=== PATIENT | female | born 1995 | race American Indian/Alaskan Native ===

== ENCOUNTER 2017-03-13 13:07 | Inpatient (IN) | payer MEDICAID ==
[~2017-03-13] VITALS: Ht 165.1 cm; Wt 85.6 kg
[~2017-03-13 13:07] MED LIST: IBUP-1222 PO; OXYC-302 PO; PREN1TAB60 PO
[2017-03-13] MEDS ORDERED: ONDANSETRON 2MG/ML, 2ML ONE ×2 (14:00→19:44)
[2017-03-13] MEDS ORDERED: ONDANSETRON 2MG/ML, 2ML IVPush ONE (14:00)
[2017-03-13] MEDS ORDERED: SODIUM CHLORIDE 0.9% 1,000ML IVBOLUS ONE ×2 (14:00→18:30)
[2017-03-13] MEDS ORDERED: SODIUM CHLORIDE FLUSH 10ML SYR IVF ONE (14:00)
[2017-03-13] MEDS ORDERED: MORPHINE SULFATE 4 MG/ML, 1ML ONE ×2 (14:00→15:32)
[2017-03-13] MEDS: MORPHINE SULFATE 4 MG/ML, 1ML IVPush PRN ×2 (14:01→15:38)
[2017-03-13 14:11] LABS: HEMOGLOBIN 13.9 g/dL (11.7-16.4); WHITE BLOOD COUNT 22.6 x10^3/uL (3.4-10)
[2017-03-13 14:20] LABS: ASPARTATE AMINO TRANSFERASE 12 U/L (15-37); BLOOD UREA NITROGEN 13 mg/dL (7-18)
[2017-03-13 14:40] LABS: DIFF TOTAL CELLS COUNTED 100 CELL DIFF
[2017-03-13 14:41] LABS: VERIFY COUNTS? YES
[2017-03-13 14:42] LABS: LARGE PLATELETS 1+
[2017-03-13] MEDS ORDERED: OMNIPAQUE 350 MG/ML, 100ML BOTTLE ONE (15:34)
[2017-03-13] MEDS ORDERED: CEFTRIAXONE PMX 1GM/50ML 50 ML ONE (17:49)
[2017-03-13] MEDS ORDERED: CEFTRIAXONE PMX 1GM/50ML 50 ML IV ONE (19:00)
[2017-03-13] MEDS ORDERED: ACETAMINOPHEN 325 MG TABLET PO PRN (19:30)
[2017-03-13] MEDS ORDERED: morphine SULFATE 10 MG/ML, 1ML ONE (19:44)
[2017-03-13] MEDS ORDERED: LEVOFLOXACIN/PMX 750MG/150ML 150 ML ONE (19:44)
[2017-03-13] MEDS: LEVOFLOXACIN/PMX 750MG/150ML 150 ML IV SCH (20:02)
[2017-03-13] MEDS: morphine SULFATE 10 MG/ML, 1ML IVPush PRN ×2 (20:02→22:54)
[2017-03-13] MEDS: ONDANSETRON 2MG/ML, 2ML IVPush PRN (20:02)
[2017-03-13 20:37] VITALS: BP 119/82
[2017-03-13] MEDS: POTASSIUM CHLORIDE 20 MEQ in LACTATED RINGERS 1,000 ML IV SCH (22:53)
[2017-03-13] MEDS: ENOXAPARIN 40 MG/0.4 ML SQ SCH (22:53)
[2017-03-14] MEDS: ONDANSETRON 2MG/ML, 2ML IVPush PRN ×4 (01:49→21:40)
[2017-03-14 02:20] VITALS: BP 103/69
[2017-03-14] MEDS: morphine SULFATE 10 MG/ML, 1ML IVPush PRN ×6 (02:47→22:11)
[2017-03-14 05:40] LABS: HEMATOCRIT 35.2 % (34.6-47.8); HEMOGLOBIN 12.3 g/dL (11.7-16.4); WHITE BLOOD COUNT 19.7 x10^3/uL (3.4-10)
[2017-03-14 05:46] LABS: ASPARTATE AMINO TRANSFERASE 10 U/L (15-37); BLOOD UREA NITROGEN 10 mg/dL (7-18)
[2017-03-14 07:23] VITALS: BP 110/71
[2017-03-14] MEDS: POTASSIUM CHLORIDE 20 MEQ in LACTATED RINGERS 1,000 ML IV SCH ×2 (09:14→21:31)
[2017-03-14 12:57] VITALS: BP 108/73
[2017-03-14] MEDS: POTASSIUM CHLORIDE 20 MEQ TAB.ER.PRT PO SCH (16:15)
[2017-03-14 18:48] VITALS: BP 120/80
[2017-03-14] MEDS: ENOXAPARIN 40 MG/0.4 ML SQ SCH (19:40)
[2017-03-14] MEDS: LEVOFLOXACIN/PMX 750MG/150ML 150 ML IV SCH (19:40)
[2017-03-15] MEDS: OXYcodone IR 5MG TABLET PO PRN ×6 (00:47→23:50)
[2017-03-15 04:26] VITALS: BP 113/77
[2017-03-15 05:06] LABS: HEMATOCRIT 33.4 % (34.6-47.8); HEMOGLOBIN 11.6 g/dL (11.7-16.4); WHITE BLOOD COUNT 12.7 x10^3/uL (3.4-10)
[2017-03-15 05:07] LABS: BLOOD UREA NITROGEN 8 mg/dL (7-18)
[2017-03-15 07:26] VITALS: BP 120/79
[2017-03-15] MEDS ORDERED: MORPHINE SULFATE 4 MG/ML, 1ML ONE (08:06)
[2017-03-15] MEDS: ONDANSETRON 2MG/ML, 2ML IVPush PRN ×2 (08:16→18:09)
[2017-03-15] MEDS: morphine SULFATE 10 MG/ML, 1ML IVPush PRN (08:18)
[2017-03-15] MEDS: POTASSIUM CHLORIDE 20 MEQ TAB.ER.PRT PO SCH (08:20)
[2017-03-15] MEDS: POTASSIUM CHLORIDE 20 MEQ in LACTATED RINGERS 1,000 ML IV SCH ×2 (11:13→21:20)
[2017-03-15 14:02] VITALS: BP 110/73
[2017-03-15 19:31] VITALS: BP 121/86
[2017-03-15] MEDS: ENOXAPARIN 40 MG/0.4 ML SQ SCH (19:40)
[2017-03-15] MEDS: LEVOFLOXACIN/PMX 750MG/150ML 150 ML IV SCH (19:40)
[2017-03-16] MEDS: ONDANSETRON 2MG/ML, 2ML IVPush PRN ×2 (00:33→08:55)
[2017-03-16 02:10] VITALS: BP 109/73
[2017-03-16] MEDS: OXYcodone IR 5MG TABLET PO PRN ×4 (04:08→16:59)
[2017-03-16 05:05] LABS: HEMATOCRIT 33.6 % (34.6-47.8); HEMOGLOBIN 11.6 g/dL (11.7-16.4); WHITE BLOOD COUNT 9.3 x10^3/uL (3.4-10)
[2017-03-16 05:10] LABS: BLOOD UREA NITROGEN 7 mg/dL (7-18)
[2017-03-16 07:07] VITALS: BP 119/83
[2017-03-16] MEDS: POTASSIUM CHLORIDE 20 MEQ in LACTATED RINGERS 1,000 ML IV SCH ×2 (08:33→16:47)
[2017-03-16 13:05] VITALS: BP 125/89
[2017-03-16] MEDS ORDERED: LEVO750T6 PO (15:06)
[2017-03-16] MEDS ORDERED: ONDA4TAB10 PO (15:06)
[2017-03-16] MEDS ORDERED: OXYC5TAB3 PO (15:06)
== END 2017-03-16 17:17 | disposition home or self-care (01) | DRG 871 ==
LOC: ED 17:17 → EDIP 18:33 → 3NE 20:32
PROVIDERS: ADMIT Hospitalist; ATTEND Family Medicine
PROC: 0T9B70Z Drainage of Bladder with Drainage Device, Via Natural or Artificial Opening (ICD-10-PCS; principal; 2017-03-13)
DX: A41.9 Sepsis, unspecified organism (principal); E43 Unspecified severe protein-calorie malnutrition; N10 Acute pyelonephritis; B96.20 Unspecified Escherichia coli [E. coli] as the cause of diseases classified elsewhere; E86.0 Dehydration; E87.6 Hypokalemia; Z16.24 Resistance to multiple antibiotics; Z68.31 Body mass index [BMI] 31.0-31.9, adult; Z88.1 Allergy status to other antibiotic agents; Z88.0 Allergy status to penicillin; Z88.8 Allergy status to other drugs, medicaments and biological substances
CPT/HCPCS: 36415; 74177; 76700; 76857; 80048; 80053; 81001; 82977; 83605; 83690; 83735; 84100; 84134; 84703; 85025; 87077; 87086; 87186; 96361; 96365; 96375; 96376; J0696; J1650; J1956; J2405; J3480; Q9967; J2270; J7030; J7120

== ENCOUNTER 2017-03-19 08:14 | Emergency (ER) | payer MEDICAID ==
[~2017-03-19] VITALS: Ht 165.1 cm; Wt 70.0 kg
[~2017-03-19 08:14] MED LIST changes: +LEVO750T6 PO; +ONDA4TAB10 PO; +OXYC5TAB3 PO
[2017-03-19] MEDS ORDERED: SODIUM CHLORIDE 0.9% 1,000ML IVBOLUS ONE (08:30)
[2017-03-19] MEDS ORDERED: SODIUM CHLORIDE FLUSH 10ML SYR IVF ONE (08:30)
[2017-03-19 08:44] LABS: HEMATOCRIT 36.7 % (34.6-47.8); HEMOGLOBIN 12.6 g/dL (11.7-16.4); WHITE BLOOD COUNT 12.8 x10^3/uL (3.4-10)
[2017-03-19 08:56] LABS: ASPARTATE AMINO TRANSFERASE 24 U/L (15-37); BLOOD UREA NITROGEN 10 mg/dL (7-18)
[2017-03-19 09:04] LABS: DIFF TOTAL CELLS COUNTED 100 CELL DIFF
[2017-03-19 09:06] LABS: VERIFY COUNTS? YES
[2017-03-19] MEDS ORDERED: MORPHINE SULFATE 4 MG/ML, 1ML ONE (09:28)
[2017-03-19 09:30] LABS: PATH.CAST-FLAG NOT PRESENT; SPERM-FLAG NOT PRESENT; SRC-FLAG NOT PRESENT; XTAL-FLAG NOT PRESENT; YLC-FLAG NOT PRESENT
[2017-03-19] MEDS ORDERED: MORPHINE SULFATE 4 MG/ML, 1ML IVPush PRN (09:30)
[2017-03-19 10:55] VITALS: BP 115/81
== END 2017-03-19 11:08 | disposition home or self-care (01) ==
LOC: MERGE 08:14 → ED 09:47
DX: R10.31 Right lower quadrant pain (principal); R19.7 Diarrhea, unspecified
CPT/HCPCS: 36415; 80053; 81001; 83690; 84703; 85025; 87077; 87086; 96361; 96374; 99285; J7030; 87186

== ENCOUNTER 2018-12-18 00:41 | Emergency (ER) | payer MEDICAID ==
[~2018-12-18] VITALS: Ht 162.6 cm; Wt 77.5 kg
[2018-12-18 00:44] VITALS: BP 142/96
[2018-12-18] MEDS ORDERED: DIPH,PERTUSS(ACELL),TET VAC/PF 0.5 ML IM-VACC ONE (01:30)
--- NOTE | 2018-12-18 01:40 | NUR ---
ATTEMPT TO CALL PT FROM LOBBY TO ROOM. PT NIL X 1
--- NOTE | 2018-12-18 02:22 | NUR ---
no answer called for room, lobby checked
--- NOTE | 2018-12-18 02:36 | NUR ---
attempted to call pt from lobby to room. pt nil x 3
== END 2018-12-18 02:38 | disposition left against medical advice (07) ==
LOC: ED 02:30
DX: M79.621 Pain in right upper arm (principal)
CPT/HCPCS: 99281

== ENCOUNTER 2018-12-27 23:55 | Emergency (ER) | payer MEDICAID ==
[~2018-12-27] VITALS: Ht 165.1 cm; Wt 85.4 kg
[2018-12-28] VITALS: BP 139/74
[2018-12-28] MEDS ORDERED: LIDOCAINE-MPF 1%, 5ML INFIL ONE (00:30)
[2018-12-28] MEDS ORDERED: DIPH,PERTUSS(ACELL),TET VAC/PF 0.5 ML IM-VACC ONE (00:30)
[2018-12-28 00:37] LABS: BASOPHILS # (AUTO) 0.04 x10^3/uL (0-0.1); BASOPHILS % (AUTO) 0 % (0-1); EOSINOPHILS # (AUTO) 0.42 x10^3/uL (0-0.4); EOSINOPHILS % (AUTO) 4 % (1-7); LYMPHOCYTES # (AUTO) 1.73 x10^3/uL (1-3.4); LYMPHOCYTES % (AUTO) 15 % (22-44); MD NO; MEAN CORPUSCULAR HEMOGLOBIN 32.7 pg (27.0-34.8); MEAN CORPUSCULAR HGB CONC 33.7 g/dL (32.4-35.8); MEAN PLATELET VOLUME 8.7 fL (7.4-10.4); MONOCYTES # (AUTO) 0.62 x10^3/uL (0.2-0.8); MONOCYTES % (AUTO) 5 % (2-9); NEUTROPHILS # (AUTO) 8.86 x10^3/uL (1.8-6.8); NEUTROPHILS % (AUTO) 76 % (42-75); PLATELET COUNT 284 x10^3/uL (130-400); RED CELL DISTRIBUTION WIDTH 14.1 % (9.6-15.2)
[2018-12-28 00:49] LABS: ALBUMIN 3.4 g/dL (3.4-5.0); ANION GAP 10 mmol/L (5-15); CALCIUM 8.7 mg/dL (8.5-10.1); CHLORIDE 109 mmol/L (98-107)
--- NOTE | 2018-12-28 01:30 | NUR ---
pt called to room, nil
--- NOTE | 2018-12-28 01:59 | NUR ---
pt called back to room, us and lab do not have pt. collette
== END 2018-12-28 02:02 | disposition left against medical advice (07) ==
LOC: ED 12-28 01:56
DX: R10.2 Pelvic and perineal pain (principal)
CPT/HCPCS: 36415; 76801; 80048; 82040; 84702; 85025; 99284

== ENCOUNTER 2019-07-08 21:21 | Inpatient (IN) | payer MEDICAID ==
[~2019-07-08] VITALS: Ht 165.1 cm; Wt 104.0 kg
[2019-07-08 21:30] VITALS: BP 110/62
[2019-07-08 21:43] LABS: MICROSCOPIC INDICATED
[2019-07-08] MEDS ORDERED: LACTATED RINGERS 1,000 ML IVBOLUS ONE (22:00)
[2019-07-08] MEDS ORDERED: TERBUTALINE 1 MG/ML, 1ML ONE (22:17)
[2019-07-08 22:20] LABS: BARBITURATE SCREEN, URINE Negative (Negative); BENZODIAZEPINE SCREEN, URINE Negative (Negative); CANNABINOID SCREEN, URINE Positive (Negative); COCAINE SCREEN, URINE Negative (Negative); METHADONE SCREEN, URINE Negative (Negative); OPIATE SCREEN, URINE Negative (Negative)
[2019-07-08 22:21] LABS: AMPHETAMINE SCREEN, URINE Negative (Negative)
[2019-07-08] MEDS ORDERED: TERBUTALINE 1 MG/ML, 1ML SQ ONE (22:30)
[2019-07-08] MEDS ORDERED: MAGNESIUM SULFATE PMX 4GM/100M 100 ML IVPB ONE (23:30)
[2019-07-08] MEDS ORDERED: MAGNESIUM SULFATE PMX 4GM/100M 100 ML ONE (23:34)
[2019-07-08] MEDS ORDERED: BETAMETHASONE 6 MG/ML, 5ML IM ONE (23:34)
[2019-07-08] MEDS ORDERED: MAGNESIUM SULFATE PMX 2GM/50ML 50 ML ONE (23:34)
[2019-07-08] MEDS: BETAMETHASONE 6 MG/ML, 5ML IM SCH (23:54)
[2019-07-09] MEDS ORDERED: MAGNESIUM SULFATE PMX 2GM/50ML 50 ML IV ONE
[2019-07-09] MEDS: MAGNESIUM SULF. PMX 20GM/500ML 500 ML IV SCH ×3 (00:27→19:12)
[2019-07-09] MEDS ORDERED: CEFAZOLIN PMX 2GM/50ML 50 ML IVPB SCH (03:00)
[2019-07-09 07:33] LABS: BASOPHILS # (AUTO) 0.01 x10^3/uL (0-0.1); BASOPHILS % (AUTO) 0 % (0-1); EOSINOPHILS % (AUTO) 0 % (1-7); LYMPHOCYTES # (AUTO) 0.84 x10^3/uL (1-3.4); LYMPHOCYTES % (AUTO) 5 % (22-44); MD NO; MEAN CORPUSCULAR HEMOGLOBIN 32.2 pg (27.0-34.8); MEAN CORPUSCULAR HGB CONC 33.3 g/dL (32.4-35.8); MEAN CORPUSCULAR VOLUME 96.8 fL (80-100); MEAN PLATELET VOLUME 8.7 fL (7.4-10.4); MONOCYTES # (AUTO) 0.09 x10^3/uL (0.2-0.8); MONOCYTES % (AUTO) 1 % (2-9); NEUTROPHILS # (AUTO) 15.06 x10^3/uL (1.8-6.8); NEUTROPHILS % (AUTO) 94 % (42-75); PLATELET COUNT 272 x10^3/uL (130-400); RED BLOOD COUNT 3.99 x10^6/uL (3.82-5.3); RED CELL DISTRIBUTION WIDTH 13.1 % (9.6-15.2)
[2019-07-09] MEDS: CEFAZOLIN PMX 1GM/50ML 50 ML IV SCH ×2 (11:01→17:58)
[2019-07-09] MEDS: LACTATED RINGERS 1,000 ML IV SCH (14:49)
[2019-07-09] MEDS ORDERED: ACETAMINOPHEN 325 MG TABLET ONE (22:15)
[2019-07-09] MEDS ORDERED: ONDANSETRON 2MG/ML, 2ML ONE (22:15)
[2019-07-09] MEDS ORDERED: ONDANSETRON 2MG/ML, 2ML IVPush PRN (22:30)
[2019-07-09] MEDS ORDERED: ACETAMINOPHEN 325 MG TABLET PO PRN (22:30)
[2019-07-09] MEDS: BETAMETHASONE 6 MG/ML, 5ML IM SCH (23:35)
[2019-07-10] MEDS: CEFAZOLIN PMX 1GM/50ML 50 ML IV SCH ×3 (01:43→17:55)
[2019-07-10] MEDS: MAGNESIUM SULF. PMX 20GM/500ML 500 ML IV SCH (05:22)
[2019-07-10] MEDS ORDERED: PRENATAL VIT/IRON/FA 1 EACH TABLET ONE (10:25)
[2019-07-10] MEDS ORDERED: DOCUSATE 100 MG CAPSULE ONE (10:25)
[2019-07-10] MEDS: PRENATAL VIT/IRON/FA 1 EACH TABLET PO SCH (10:27)
[2019-07-10] MEDS ORDERED: DOCUSATE 100 MG CAPSULE PO PRN (10:30)
[2019-07-10] MEDS ORDERED: MAGNESIUM SULFATE IV SCH (16:30)
[2019-07-10] MEDS ORDERED: DEXTROSE 5% IV SCH (16:30)
[2019-07-10] MEDS ORDERED: ONDANSETRON ODT 4 MG ONE (17:27)
[2019-07-10] MEDS ORDERED: ONDANSETRON ODT 4 MG PO PRN (17:30)
[2019-07-10] MEDS: LACTATED RINGERS 1,000 ML IV SCH (19:21)
[2019-07-11] MEDS: CEFAZOLIN PMX 1GM/50ML 50 ML IV SCH (01:42)
[2019-07-11] MEDS ORDERED: PRENATAL VIT/IRON/FA 1 EACH TABLET ONE (08:04)
[2019-07-11] MEDS: PRENATAL VIT/IRON/FA 1 EACH TABLET PO SCH (08:06)
[2019-07-11 08:12] VITALS: BP 116/73
[2019-07-11] MEDS ORDERED: PREN1TAB60 PO (08:20)
== END 2019-07-11 15:47 | disposition home or self-care (01) | DRG 563 ==
LOC: LDOP 21:21 → OBSVTOIN 22:43 → LDIP 22:43
PROVIDERS: ADMIT Obstetrics & Gynecology; ATTEND Obstetrics & Gynecology
DX: O60.03 Preterm labor without delivery, third trimester (principal); O34.219 Maternal care for unspecified type scar from previous cesarean delivery; Z90.49 Acquired absence of other specified parts of digestive tract; Z88.0 Allergy status to penicillin; Z88.1 Allergy status to other antibiotic agents; Z88.8 Allergy status to other drugs, medicaments and biological substances; Z3A.31 31 weeks gestation of pregnancy
CPT/HCPCS: 36415; 80307; 81001; 83735; 84112; 85025; 86850; 86900; 87081; 87086; G0378; J0690; J0702; J2405; J3475; Q0162; J3105; J7060; J7120

== ENCOUNTER 2019-07-30 16:40 | Outpatient (CLI) | payer MEDICAID ==
[~2019-07-30] VITALS: Ht 165.1 cm
[2019-07-30 17:32] LABS: AMPHETAMINE SCREEN, URINE Negative (Negative); BARBITURATE SCREEN, URINE Negative (Negative); BENZODIAZEPINE SCREEN, URINE Negative (Negative); CANNABINOID SCREEN, URINE Positive (Negative); COCAINE SCREEN, URINE Negative (Negative); METHADONE SCREEN, URINE Negative (Negative); OPIATE SCREEN, URINE Negative (Negative)
[2019-07-30 17:36] LABS: MICROSCOPIC INDICATED
== END 2019-07-30 18:50 | disposition home or self-care (01) ==
LOC: LDOP 16:40
PROVIDERS: ATTEND Obstetrics & Gynecology
DX: O13.3 Gestational [pregnancy-induced] hypertension without significant proteinuria, third trimester (principal); Z98.891 History of uterine scar from previous surgery; Z3A.34 34 weeks gestation of pregnancy
CPT/HCPCS: 59025; 76818; 80307; 81001; 99211; G0463

== ENCOUNTER 2019-08-09 12:30 | Outpatient (CLI) | payer MEDICAID ==
[~2019-08-09] VITALS: Ht 165.1 cm; Wt 110.9 kg
[2019-08-09 12:43] VITALS: BP 141/71
[2019-08-09] MEDS ORDERED: ONDANSETRON 2MG/ML, 2ML IVPush PRN (13:30)
[2019-08-09] MEDS ORDERED: niFEDipine ER 60 MG TABLET.ER PO ONE ×2 (13:30)
[2019-08-09 13:36] LABS: MICROSCOPIC INDICATED
[2019-08-09 13:42] LABS: BASOPHILS # (AUTO) 0.01 x10^3/uL (0-0.1); BASOPHILS % (AUTO) 0 % (0-1); EOSINOPHILS # (AUTO) 0.03 x10^3/uL (0-0.4); EOSINOPHILS % (AUTO) 0 % (1-7); LYMPHOCYTES # (AUTO) 0.29 x10^3/uL (1-3.4); LYMPHOCYTES % (AUTO) 3 % (22-44); MD NO; MEAN CORPUSCULAR HEMOGLOBIN 31.8 pg (27.0-34.8); MEAN CORPUSCULAR HGB CONC 34.7 g/dL (32.4-35.8); MEAN CORPUSCULAR VOLUME 91.6 fL (80-100); MEAN PLATELET VOLUME 8.9 fL (7.4-10.4); MONOCYTES # (AUTO) 0.72 x10^3/uL (0.2-0.8); MONOCYTES % (AUTO) 8 % (2-9); NEUTROPHILS # (AUTO) 8.55 x10^3/uL (1.8-6.8); NEUTROPHILS % (AUTO) 89 % (42-75); PLATELET COUNT 247 x10^3/uL (130-400); RED BLOOD COUNT 4.14 x10^6/uL (3.82-5.3); RED CELL DISTRIBUTION WIDTH 13.6 % (9.6-15.2)
[2019-08-09 13:51] LABS: AMPHETAMINE SCREEN, URINE Negative (Negative); BARBITURATE SCREEN, URINE Negative (Negative); BENZODIAZEPINE SCREEN, URINE Negative (Negative); CANNABINOID SCREEN, URINE Positive (Negative); COCAINE SCREEN, URINE Negative (Negative); METHADONE SCREEN, URINE Negative (Negative); OPIATE SCREEN, URINE Negative (Negative); PROTEIN/CREATININE RATIO,URINE 216 (0-200); TOTAL PROTEIN,URINE RANDOM 30 mg/dL (0-12)
[2019-08-09 13:52] LABS: ALBUMIN 2.5 g/dL (3.4-5.0); ANION GAP 11 mmol/L (5-15); CALCIUM 8.2 mg/dL (8.5-10.1); CHLORIDE 110 mmol/L (98-107)
[2019-08-09 13:56] LABS: ALANINE AMINOTRANSFERASE 20 U/L (12-78); ALKALINE PHOSPHATASE 167 U/L (45-117); BILIRUBIN,TOTAL 0.3 mg/dL (0.2-1.0); CREATININE 0.56 mg/dL (0.55-1.02); TOTAL PROTEIN 7.1 g/dL (6.4-8.2)
[2019-08-09 14:03] LABS: BILIRUBIN, DIRECT < 0.1 mg/dL (0.1-0.2)
[2019-08-09 14:05] LABS: RAPID INFLUENZA A POSITIVE (Negative); RAPID INFLUENZA B Negative (Negative)
[2019-08-09] MEDS ORDERED: D5%-LACTATED RINGERS 1,000 ML IV ONE ×2 (15:00)
== END 2019-08-09 15:50 | disposition home or self-care (01) ==
LOC: LDOP 12:30
PROVIDERS: ATTEND Obstetrics & Gynecology
DX: O13.3 Gestational [pregnancy-induced] hypertension without significant proteinuria, third trimester (principal); O21.2 Late vomiting of pregnancy; Z3A.35 35 weeks gestation of pregnancy
CPT/HCPCS: 36415; 59025; 80053; 80307; 81001; 82248; 82570; 84112; 84156; 84550; 85025; 87400; 96360; 99211; J7121; G0463

== ENCOUNTER 2019-08-21 07:07 | Inpatient (IN) | payer MEDICAID ==
[~2019-08-21] VITALS: Ht 165.1 cm; Wt 109.5 kg
[2019-08-21] MEDS ORDERED: OXYTOCIN 30U/ 0.9% NaCL 500ML 500 ML ONE (07:19)
[2019-08-21] MEDS ORDERED: NEWBORN KIT ONE (07:19)
[2019-08-21] MEDS ORDERED: SODIUM CITRATE/CITRIC ACID 30 ML UDC ONE (07:20)
[2019-08-21] MEDS ORDERED: METOCLOPRAMIDE 5 MG/ML, 2ML ONE (07:20)
[2019-08-21 07:28] VITALS: BP 136/84
[2019-08-21] MEDS ORDERED: LACTATED RINGERS 1,000 ML IVBOLUS ONE ×2 (07:30→08:00)
[2019-08-21] MEDS ORDERED: SODIUM CITRATE/CITRIC ACID 30 ML UDC PO ONE (07:30)
[2019-08-21] MEDS ORDERED: ONDANSETRON 2MG/ML, 2ML IVPush ONE (07:30)
[2019-08-21] MEDS ORDERED: METOCLOPRAMIDE 5 MG/ML, 2ML IV ONE (07:30)
[2019-08-21 07:33] LABS: BASOPHILS # (AUTO) 0.03 x10^3/uL (0-0.1); BASOPHILS % (AUTO) 0 % (0-1); EOSINOPHILS # (AUTO) 0.02 x10^3/uL (0-0.4); EOSINOPHILS % (AUTO) 0 % (1-7); LYMPHOCYTES # (AUTO) 2.17 x10^3/uL (1-3.4); LYMPHOCYTES % (AUTO) 19 % (22-44); MD NO; MEAN CORPUSCULAR HEMOGLOBIN 31.8 pg (27.0-34.8); MEAN CORPUSCULAR HGB CONC 33.9 g/dL (32.4-35.8); MEAN CORPUSCULAR VOLUME 93.9 fL (80-100); MEAN PLATELET VOLUME 8.6 fL (7.4-10.4); MONOCYTES # (AUTO) 0.75 x10^3/uL (0.2-0.8); MONOCYTES % (AUTO) 7 % (2-9); NEUTROPHILS # (AUTO) 8.64 x10^3/uL (1.8-6.8); NEUTROPHILS % (AUTO) 74 % (42-75); PLATELET COUNT 260 x10^3/uL (130-400); RED BLOOD COUNT 4.06 x10^6/uL (3.82-5.3); RED CELL DISTRIBUTION WIDTH 14.1 % (9.6-15.2)
[2019-08-21] MEDS ORDERED: CLINDAMYCIN PMX 900MG/50ML 0 ML ONE (07:39)
[2019-08-21] MEDS ORDERED: FENTANYL PF 100 MCG/2ML ONE (07:43)
[2019-08-21] MEDS ORDERED: AZITHROMYCIN 500 MG in SODIUM CHLORIDE 0.9% 250 ML IV ONE (08:00)
[2019-08-21] MEDS ORDERED: TERBUTALINE 1 MG/ML, 1ML ONE (08:04)
[2019-08-21 08:24] LABS: ALANINE AMINOTRANSFERASE 12 U/L (12-78); ALBUMIN 2.5 g/dL (3.4-5.0); ANION GAP 10 mmol/L (5-15); CALCIUM 8.3 mg/dL (8.5-10.1); CHLORIDE 114 mmol/L (98-107); CREATININE 0.58 mg/dL (0.55-1.02)
[2019-08-21 08:26] LABS: ALKALINE PHOSPHATASE 158 U/L (45-117); BILIRUBIN,TOTAL 0.5 mg/dL (0.2-1.0); TOTAL PROTEIN 6.5 g/dL (6.4-8.2)
[2019-08-21] MEDS ORDERED: EPHEDRINE 50 MG/ML, 1ML ONE (08:30)
[2019-08-21] MEDS ORDERED: LIDOCAINE-MPF 2% ,5ML ONE ×2 (08:30)
[2019-08-21] MEDS ORDERED: OXYTOCIN 10 UNITS/ML, 1ML ONE ×5 (08:31)
[2019-08-21] MEDS ORDERED: CEFAZOLIN 1,000 MG ONE ×2 (08:31)
[2019-08-21 08:57] LABS: AMPHETAMINE SCREEN, URINE Negative (Negative); BARBITURATE SCREEN, URINE Negative (Negative); BENZODIAZEPINE SCREEN, URINE Negative (Negative); CANNABINOID SCREEN, URINE Positive (Negative); COCAINE SCREEN, URINE Negative (Negative); METHADONE SCREEN, URINE Negative (Negative); OPIATE SCREEN, URINE Negative (Negative); PROTEIN/CREATININE RATIO,URINE 241 (0-200); TOTAL PROTEIN,URINE RANDOM 9 mg/dL (0-12)
[2019-08-21] MEDS: LACTATED RINGERS 1,000 ML IV SCH ×3 (09:49→17:49)
[2019-08-21] MEDS: OXYTOCIN 30U/ 0.9% NaCL 500ML 500 ML IV SCH ×2 (09:49→19:49)
[2019-08-21] MEDS ORDERED: ONDANSETRON 2MG/ML, 2ML IV PRN ×2 (10:00)
[2019-08-21] MEDS ORDERED: DIPHENHYDRAMINE 50 MG/ML, 1ML IVPush PRN (10:00)
[2019-08-21] MEDS ORDERED: GLYCERIN ADULT SUPP PR PRN (10:00)
[2019-08-21] MEDS ORDERED: EPHEDRINE 50 MG/ML, 1ML IVPush PRN (10:00)
[2019-08-21] MEDS ORDERED: SIMETHICONE 80 MG CHEW TAB PO PRN (10:00)
[2019-08-21] MEDS ORDERED: HALOPERIDOL 5 MG/ML IV PRN (10:00)
[2019-08-21] MEDS ORDERED: FENTANYL PF 100 MCG/2ML IV PRN (10:00)
[2019-08-21] MEDS ORDERED: DEXAMETHASONE 4 MG/ML, 1ML IV PRN (10:00)
[2019-08-21] MEDS ORDERED: BISACODYL 10 MG SUPP PR PRN (10:00)
[2019-08-21] MEDS ORDERED: MISOPROSTOL 200 MCG TABLET PO PRN (10:00)
[2019-08-21] MEDS ORDERED: OXYcodone 5 MG/5 ML ORAL.SOL UDC PO PRN (10:00)
[2019-08-21] MEDS ORDERED: MORPHINE SULFATE 4 MG/ML, 1ML IVPush PRN (10:00)
[2019-08-21] MEDS: OXYcodone IR 5MG TABLET PO PRN ×3 (12:34→21:19)
[2019-08-21] MEDS: niFEDipine ER 30 MG TABLET.ER PO SCH (12:37)
[2019-08-21 12:40] VITALS: BP 122/77
[2019-08-21 16:20] VITALS: BP 134/81
[2019-08-21] MEDS: ACETAMINOPHEN 325 MG TABLET PO SCH ×2 (16:35→21:19)
[2019-08-21] MEDS: KETOROLAC 30 MG/1 ML IV SCH ×2 (16:35→21:19)
[2019-08-21 17:53] LABS: BASOPHILS % (AUTO) 0 % (0-1); EOSINOPHILS # (AUTO) 0.01 x10^3/uL (0-0.4); EOSINOPHILS % (AUTO) 0 % (1-7); LYMPHOCYTES # (AUTO) 1.42 x10^3/uL (1-3.4); LYMPHOCYTES % (AUTO) 12 % (22-44); MD SCAN; MEAN CORPUSCULAR HEMOGLOBIN 31.9 pg (27.0-34.8); MEAN CORPUSCULAR HGB CONC 34.6 g/dL (32.4-35.8); MEAN CORPUSCULAR VOLUME 92.4 fL (80-100); MEAN PLATELET VOLUME 9.1 fL (7.4-10.4); MONOCYTES # (AUTO) 0.52 x10^3/uL (0.2-0.8); MONOCYTES % (AUTO) 5 % (2-9); NEUTROPHILS # (AUTO) 9.73 x10^3/uL (1.8-6.8); NEUTROPHILS % (AUTO) 83 % (42-75); PLATELET COUNT 206 x10^3/uL (130-400); RED BLOOD COUNT 3.47 x10^6/uL (3.82-5.3); RED CELL DISTRIBUTION WIDTH 13.6 % (9.6-15.2)
[2019-08-21 20:00] VITALS: BP 130/86
[2019-08-21] MEDS: DOCUSATE 100 MG CAPSULE PO PRN (21:19)
[2019-08-22] VITALS: BP 130/85
[2019-08-22] MEDS: OXYcodone IR 5MG TABLET PO PRN ×6 (00:58→22:25)
[2019-08-22] MEDS: LACTATED RINGERS 1,000 ML IV SCH ×6 (01:00→21:00)
[2019-08-22] MEDS: ACETAMINOPHEN 325 MG TABLET PO SCH ×4 (03:20→22:17)
[2019-08-22] MEDS: KETOROLAC 30 MG/1 ML IV SCH ×4 (03:20→22:16)
[2019-08-22 04:00] VITALS: BP 128/84
[2019-08-22] MEDS: OXYTOCIN 30U/ 0.9% NaCL 500ML 500 ML IV SCH ×2 (05:49→15:49)
[2019-08-22 07:20] VITALS: BP 128/83
[2019-08-22] MEDS: PRENATAL VIT/IRON/FA 1 EACH TABLET PO SCH (09:37)
[2019-08-22] MEDS: niFEDipine ER 30 MG TABLET.ER PO SCH (09:37)
[2019-08-22] MEDS: DOCUSATE 100 MG CAPSULE PO PRN ×2 (09:37→22:17)
[2019-08-22 12:43] VITALS: BP 130/83
[2019-08-22 16:10] VITALS: BP 132/84
[2019-08-22 20:40] VITALS: BP 115/76
[2019-08-23] MEDS: OXYTOCIN 30U/ 0.9% NaCL 500ML 500 ML IV SCH (01:49)
[2019-08-23] MEDS: LACTATED RINGERS 1,000 ML IV SCH ×2 (01:49→07:00)
[2019-08-23] MEDS: OXYcodone IR 5MG TABLET PO PRN ×5 (02:24→20:42)
[2019-08-23] MEDS: ACETAMINOPHEN 325 MG TABLET PO SCH ×4 (03:59→21:13)
[2019-08-23] MEDS: KETOROLAC 30 MG/1 ML IV SCH ×2 (03:59→09:54)
[2019-08-23 07:32] VITALS: BP 124/79
[2019-08-23] MEDS: PRENATAL VIT/IRON/FA 1 EACH TABLET PO SCH (08:40)
[2019-08-23] MEDS: DOCUSATE 100 MG CAPSULE PO PRN (08:40)
[2019-08-23] MEDS: niFEDipine ER 30 MG TABLET.ER PO SCH (08:40)
[2019-08-23] MEDS ORDERED: KETOROLAC 30 MG/1 ML ONE (09:51)
[2019-08-23] MEDS: IBUPROFEN 600 MG TABLET PO SCH ×3 (16:00→21:13)
[2019-08-23 19:20] VITALS: BP 129/78
[2019-08-24] MEDS: OXYcodone IR 5MG TABLET PO PRN ×2 (01:05→06:25)
[2019-08-24] MEDS: ACETAMINOPHEN 325 MG TABLET PO SCH (03:48)
[2019-08-24] MEDS: IBUPROFEN 600 MG TABLET PO SCH ×2 (03:48→09:56)
[2019-08-24 07:35] VITALS: BP 110/73
[2019-08-24] MEDS: PRENATAL VIT/IRON/FA 1 EACH TABLET PO SCH (09:55)
[2019-08-24] MEDS: DOCUSATE 100 MG CAPSULE PO PRN (09:55)
[2019-08-24] MEDS: niFEDipine ER 30 MG TABLET.ER PO SCH (09:56)
[2019-08-24] MEDS ORDERED: OXYC-302 PO (10:06)
[2019-08-24] MEDS ORDERED: IBUP-1222 PO (10:06)
== END 2019-08-24 12:40 | disposition home or self-care (01) | DRG 540 ==
LOC: LDOP 07:07 → LDIP 07:18 → 2NW 11:53
PROVIDERS: ADMIT Obstetrics & Gynecology; ATTEND Obstetrics & Gynecology
PROC: 10D00Z1 Extraction of Products of Conception, Low, Open Approach (ICD-10-PCS; principal; 2019-08-21)
PROC: 0UB70ZZ Excision of Bilateral Fallopian Tubes, Open Approach (ICD-10-PCS; 2019-08-21)
DX: O13.4 Gestational [pregnancy-induced] hypertension without significant proteinuria, complicating childbirth (principal); E66.01 Morbid (severe) obesity due to excess calories; O34.211 Maternal care for low transverse scar from previous cesarean delivery; Z88.0 Allergy status to penicillin; Z88.8 Allergy status to other drugs, medicaments and biological substances; Z37.0 Single live birth; Z3A.37 37 weeks gestation of pregnancy; O99.214 Obesity complicating childbirth
CPT/HCPCS: 36415; 80053; 80307; 82570; 84156; 85025; 86592; 86850; 86900; 88302; G0378; J0456; J0690; J1885; J3010; J2590; J2765; J7050; J7120

== ENCOUNTER 2021-02-25 16:31 | Emergency (ER) | payer MEDICAID ==
[~2021-02-25] VITALS: Ht 165.1 cm; Wt 104.6 kg
[~2021-02-25 16:31] MED LIST changes: -OXYC-302 PO; +OXYC1TAB12 PO; -OXYC5TAB3 PO; +OXYC5TAB98 PO
[2021-02-25 16:43] VITALS: BP 140/90
[2021-02-25] MEDS ORDERED: IBUPROFEN 800 MG TABLET ONE (16:52)
[2021-02-25] MEDS ORDERED: IBUPROFEN 800 MG TABLET PO ONE (17:00)
== END 2021-02-25 17:00 | disposition home or self-care (01) ==
LOC: ED 16:40
DX: K02.9 Dental caries, unspecified (principal)
CPT/HCPCS: 99283